=== PATIENT | female | born 1950 | race Caucasian/White ===

== ENCOUNTER 2016-11-25 10:02 | Outpatient (CLI) | payer MEDICARE, OTHER ==
[2016-01-23 22:18] VITALS: BP 112/52
--- NOTE | 2016-11-25 14:43 | Diagnostic Imaging Report ---
EFRAÍN SCHULTZ - CHARLY [facility] [id number] [facility] [address] [id number] Report Submission Date: Nov 25, 2016 12:16:19 PM CDT Patient Study Name: DEAN GARCIA Date: Nov 25, 2016 10:05:38 AM CDT Modality Type: CR Gender: F Description: LOWER EXTREMITY : 48 Institution: [facility] Physician: EFRAÍN SCHULTZ Examination: Plain film ankle History: Injury Findings: 3 views of the ankle demonstrates normal cortical margins. No fracture or dislocation. Talar dome is intact. Normal epiphysis. Posterior calcaneal spur. No soft tissue swelling. No joint effusion. Impression: Degenerative changes and spurs. No acute osseous process Electronically signed on Nov 25, 2016 12:16:19 PM CDT by: Galdino EPSTEIN
== END 2016-11-25 10:03 ==
LOC: RAD 10:02
PROVIDERS: ATTEND Family Medicine
DX: M25.572 Pain in left ankle and joints of left foot (principal)
CPT/HCPCS: 73610

== ENCOUNTER 2018-12-13 13:10 | Outpatient (CLI) | payer OTHER ==
[2016-01-23 22:18] VITALS: BP 112/52
[2018-12-13 14:01] LABS: BASOPHILS % 0.4 % (0.0-1.5); NEUTROPHILS # 2.9 # k/uL (1.4-7.7)
== END 2018-12-13 13:13 ==
LOC: LAB 13:10
PROVIDERS: ATTEND Family Medicine
DX: R07.89 Other chest pain (principal); D64.9 Anemia, unspecified
CPT/HCPCS: 36415; 83540; 83550; 83880; 84484; 85025